=== PATIENT | male | born 1970 | race American Indian/Alaskan Native ===

== ENCOUNTER 2016-11-21 02:15 | Emergency (ER) | payer OTHER ==
[2016-11-21 03:32] LABS: Basophils % (Auto) 0.7 % (0.0-1.8); Eosinophils % (Auto) 5.3 % (0.0-4.3); Hematocrit 48.2 % (35.5-45.6); Hemoglobin 15.6 gm/dl (11.8-15.2); Mean Corpuscular HGB Conc 32 % (32-34); Mean Corpuscular Hemoglobin 29 pg (28-32); Mean Corpuscular Volume 88 fl (84-94); Platelet Count 223 K/mm3 (140-440); Red Blood Count 5.47 M/mm3 (3.65-5.03); Red Cell Distribution Width 12.2 % (13.2-15.2); White Blood Count 6.6 K/mm3 (4.5-11.0)
[2016-11-21 03:43] LABS: INR 0.93 (0.87-1.13)
[2016-11-21 03:44] LABS: Partial Thromboplastin Time 30.2 Sec. (24.2-36.6)
[2016-11-21 03:59] LABS: Alanine Aminotransferase 49 units/L (7-56); Albumin 4.2 g/dL (3.9-5); Albumin/Globulin Ratio 1.4 %; Alkaline Phosphatase 89 units/L (35-129); Anion Gap 18 mmol/L; Bilirubin,Total 0.5 mg/dL (0.1-1.2); Blood Urea Nitrogen 15 mg/dL (9-20); Carbon Dioxide 25 mmol/L (22-30); Chloride 97.7 mmol/L (98-107); Glucose 136 mg/dL (75-100); Lipase 31 units/L (13-60); Potassium 4.5 mmol/L (3.6-5.0); Sodium 136 mmol/L (137-145); Total Protein 7.3 g/dL (6.3-8.2)
--- NOTE | 2016-11-21 08:33 | Emergency Department Report ---
HPI - General Chief Complaint: Abdominal Pain Time Seen by Provider: 11/21/16 07:44 - HPI HPI: This is a 45-year-old Afro-[place]ian male presents to the emergency department from home with complaint of some pain to the upper right flank and back that began around midnight last night and became very severe around 2 AM. However the patient says that his pain improved after presentation to the emergency department. He says that he thinks he has a narrow down to a gluten allergy or at least some food sensitivity. When this happens he usually gets some sweating and extreme pain until he is able to vomit and then the pain goes away. However was slightly different tonight as he had some mild facial swelling and blood shot eyes. He denied any tongue or throat swelling or any shortness of breath or problems swallowing and says that all the symptoms have currently resolved. He did not take anything for symptoms prior to presentation. He does not have a primary care doctor. He denies any past medical history. No recent travel or sick contacts at home. ED Past Medical Hx - Social History Smoking Status: Unknown if ever smoked ED Review of Systems ROS: Stated complaint: ALLERGIC REACTION Other details as noted in HPI Comment: All other systems reviewed and negative Constitutional: denies: chills, fever Eyes: denies: eye pain, eye discharge, vision change ENT: denies: ear pain, throat pain Respiratory: denies: cough, shortness of breath, wheezing Cardiovascular: denies: palpitations, edema Gastrointestinal: denies: nausea, diarrhea Genitourinary: denies: urgency, dysuria Musculoskeletal: denies: back pain, joint swelling, arthralgia Skin: denies: rash, lesions Neurological: denies: headache, weakness, paresthesias Physical Exam - Physical Exam Vital Signs: Vital Signs 11/21/16 11/21/16 11/21/16 02:31 07:46 07:47 Temperature 98.2 F 98.5 F Pulse Rate 70 57 L Respiratory 20 16 16 Rate Blood Pressure 150/99 Blood Pressure 147/84 [Left] O2 Sat by Pulse 97 98 98 Oximetry Physical Exam: GENERAL: The patient is well-developed well-nourished. HEENT: Normocephalic. Atraumatic. Extraocular motions are intact. Patient has moist mucous membranes. Pupils equal reactive to light bilaterally. NECK: Supple. Trachea is midline. CHEST/LUNGS: Clear to auscultation. There is no respiratory distress noted. HEART/CARDIOVASCULAR: Regular. There is no tachycardia. There is no gallop rub or murmur. ABDOMEN: Abdomen is soft, nontender. Patient has normal bowel sounds. There is no abdominal distention. SKIN: There is no rash. There is no edema. There is no diaphoresis. NEURO: The patient is awake, alert, and oriented. The patient is cooperative. The patient has no focal neurologic deficits. The patient has normal speech. MUSCULOSKELETAL: There is no tenderness or deformity. There is no limitation range of motion. There is no evidence of acute injury. ED Course Vital Signs 11/21/16 11/21/16 11/21/16 02:31 07:46 07:47 Temperature 98.2 F 98.5 F Pulse Rate 70 57 L Respiratory 20 16 16 Rate Blood Pressure 150/99 Blood Pressure 147/84 [Left] O2 Sat by Pulse 97 98 98 Oximetry ED Medical Decision Making - Lab Data Result diagrams: 11/21/16 03:10 11/21/16 03:10 - Radiology Data Radiology results: report reviewed Right upper quadrant abdominal ultrasound shows cholelithiasis without cholecystitis and fatty infiltration of the liver. - Medical Decision Making 45-year-old male presents the emergency department with complaint of pain that started in the right upper quadrant flank and back that has since resolved. However the patient has these episodes of pain or attacks every once in a while but it has been increasing recently. It is always associated with eating. The patient thought it was some type of gluten allergy or intolerance. However his history sounds more consistent with gallstones. An ultrasound was done that shows cholelithiasis without cholecystitis and fatty infiltration of liver. Labs are unremarkable. Vital signs stable throughout his ED course. Patient does not appear to be in any acute distress and does not have a toxic or rigid abdomen. He was given referrals for both primary care as well as a surgeon so that he can follow-up regarding possible outpatient cholecystectomy. He will return to the ER with any worsening of his symptoms or any acute distress. - Differential Diagnosis cholelithiasis, cholecystitis, food allergy, colitis, nephrolithiasis Critical Care Time: No Critical care attestation.: If time is entered above; I have spent that time in minutes in the direct care of this critically ill patient, excluding procedure time. ED Disposition Clinical Impression: Biliary colic, Fatty infiltration of liver Cholelithiasis Qualifiers: Cholelithiasis location: gallbladder Cholecystitis presence: without cholecystitis Biliary obstruction: without biliary obstruction Qualified Code(s) : K80.20 - Calculus of gallbladder without cholecystitis without obstruction Disposition: DISCHARGED TO HOME OR SELFCARE Is pt being admited?: No Condition: Stable Instructions: Biliary Colic (ED) Additional Instructions: These follow-up with a primary care doctor next few days if possible. I'll also given you a referral for a local surgeon, Dr. Arriaza, to follow up regarding her gallstones. Try to stay with foods that are fatty, greasy. Return to the emergency department with any worsening of your symptoms or any acute distress. Referrals: PRIMARY CARE, [Primary Care Provider] - 3-5 Days ALLI BLACK MD [Staff Physician] - 3-5 Days ALFIE ARRIAZA MD [Staff Physician] - 3-5 Days Time of Disposition: 09:59
--- NOTE | 2016-11-21 09:11 | Ultrasound Report ---
RIGHT UPPER QUADRANT ULTRASOUND: HISTORY: Right upper quadrant pain. Technique: Transabdominal ultrasound imaging with Doppler interrogation. FINDINGS: The liver parenchyma is echogenic and attenuates the ultrasound beam consistent with diffuse fatty infiltration. No mass is detected. No perihepatic ascites. The gallbladder is partially contracted and contains at least one gallstone measuring up to 1 cm in the gallbladder fundus. The CBD measures 3.2 mm. The pancreas is obscured by overlying The right kidney measures 12.8 cm in length. No abnormality. The aorta is obscured. IMPRESSION: Cholelithiasis. No evidence for acute cholecystitis or choledocholithiasis. Diffuse fatty infiltration of the liver.
[2016-11-21 10:12] VITALS: BP 130/84
[2016-11-21 10:46] LABS: Bilirubin,Urine NEG (Negative); Blood,Urine NEG (Negative); Ketones,Urine NEG (Negative); Leukocyte Esterase,Urine NEG (Negative); Mucus,Urine FEW /HPF; Nitrite,Urine NEG (Negative); Protein,Urine <15 mg/dL mg/dL (Negative); Urobilinogen,Urine < 2.0 mg/dL (<2.0)
== END 2016-11-21 10:13 | disposition home or self-care (01) ==
LOC: ED 02:15
DX: K80.20 Calculus of gallbladder without cholecystitis without obstruction (principal); K76.0 Fatty (change of) liver, not elsewhere classified
CPT/HCPCS: 36415; 76705; 80053; 81001; 83690; 85025; 85610; 85730

== ENCOUNTER 2018-08-10 12:46 | Emergency (ER) | payer OTHER ==
[2018-08-10 12:53] VITALS: BP 145/97
[2018-08-10] MEDS ORDERED: IBUPROFEN PO ONE (15:08)
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
--- NOTE | 2018-08-10 16:01 | XRay Report ---
FINAL REPORT EXAM: XR SPINE LUMBOSACRAL 2-3V HISTORY: back pain TECHNIQUE: AP and lateral radiographs of the lumbar spine. PRIORS: None. FINDINGS: There are five lumbar type vertebral bodies. Normal alignment. No compression fracture. The disc spaces are maintained. The paravertebral soft tissues are normal. IMPRESSION: Normal lumbar spine.
--- NOTE | 2018-08-10 16:05 | XRay Report ---
FINAL REPORT EXAM: XR SHOULDER 2+V RT HISTORY: right shoulder pain TECHNIQUE: Three views of the right shoulder. PRIORS: None. FINDINGS: No fracture. No dislocation. Normal mineralization. No soft tissue abnormality. Mild degenerative changes of the right acromioclavicular joint are seen. IMPRESSION: Mild osteoarthritis of the right acromioclavicular joint
== END 2018-08-10 16:49 | disposition home or self-care (01) ==
LOC: ED 12:46
DX: S39.012A Strain of muscle, fascia and tendon of lower back, initial encounter (principal); S46.911A Strain of unspecified muscle, fascia and tendon at shoulder and upper arm level, right arm, initial encounter; M19.011 Primary osteoarthritis, right shoulder; V89.2XXA Person injured in unspecified motor-vehicle accident, traffic, initial encounter; Y93.89 Activity, other specified; Y92.488 Other paved roadways as the place of occurrence of the external cause; Y99.8 Other external cause status
CPT/HCPCS: 72100; 99283